=== PATIENT | female | born 1970 | race Hispanic/Latino ===

== ENCOUNTER 2017-11-11 14:35 | Emergency (ER) | payer OTHER ==
[2017-11-11 15:10] LABS: APPEARANCE,URINE Cloudy (CLEAR); BILIRUBIN,URINE Negative (NEGATIVE); COLOR,URINE Yellow (YELLOW); GLUCOSE, URINE (UA) Negative (NEGATIVE); KETONES,URINE Trace mg/dL (NEGATIVE); LEUKOCYTE ESTERASE ,URINE Large (NEGATIVE); NITRATE,URINE Negative (NEGATIVE); OCCULT BLOOD,URINE Negative (NEGATIVE); PROTEIN,URINE POS 1+ (NEGATIVE); UROBILINOGEN,URINE 0.2 mg/dL (0.2-1.0)
[2017-11-11 15:15] LABS: HCG,QUAL RESULT NEGATIVE (NEGATIVE)
[2017-11-11 15:30] LABS: BACTERIA,URINE Many /HPF (None Seen); RBC,URINE None Seen /HPF (0-1); SQUAMOUS EPITHELIAL CELL,UR 30-50 /LPF (0-2); WBC,URINE 26-50 /HPF (0-1)
[2017-11-11 15:31] LABS: MUCUS,URINE Rare LPF (None Seen)
[2017-11-11] MEDS ORDERED: ORPHENADRINE CITRATE 30 MG/ML ML ONE (16:37)
[2017-11-11] MEDS ORDERED: KETOROLAC TROMETHAMINE 30MG/ML ONE (16:37)
== END 2017-11-11 17:45 | disposition home or self-care (01) ==
LOC: EDH 14:35
DX: N39.0 Urinary tract infection, site not specified (principal); M54.31 Sciatica, right side
CPT/HCPCS: 72100; 73502; 81001; 81025; 96372 ×2; 99285; J1885; J2360